=== PATIENT | female | born 2000 | race Caucasian/White ===

== ENCOUNTER 2022-01-26 10:49 | Outpatient (CLI) | payer OTHER | END 2022-01-26 10:59 | disposition home or self-care (01) | LOC: SONOGRAMA 10:49 | PROVIDERS: ATTEND Obstetrics & Gynecology | DX: D24.1 Benign neoplasm of right breast (principal); D28.0 Benign neoplasm of vulva ==

== ENCOUNTER 2023-05-07 10:49 | Outpatient (CLI) | payer OTHER | END 2023-05-07 11:03 | disposition home or self-care (01) | LOC: SONOGRAMA 10:49 | PROVIDERS: ATTEND Obstetrics & Gynecology | DX: D28.0 Benign neoplasm of vulva (principal) ==

== ENCOUNTER 2023-06-02 08:32 | Emergency (ER) | payer OTHER ==
[~2023-06-02] VITALS: Ht 157.5 cm; Wt 50.3 kg
[2023-06-02] MEDS ORDERED: CELEXA20 MG PO (09:09)
[2023-06-02] MEDS ORDERED: NASAL MIST126 ML (09:09)
== END 2023-06-02 12:36 | disposition home or self-care (01) ==
LOC: ER 08:32
DX: K52.9 Noninfective gastroenteritis and colitis, unspecified (principal)